=== PATIENT | female | born 1985 | race American Indian/Alaskan Native ===

== ENCOUNTER 2020-11-29 22:33 | Emergency (ER) | payer SELFPAY ==
[2020-11-29] MEDS ORDERED: Sodium Chloride 0.9% 10 ML Syringe FLUSH PRN (22:48)
--- NOTE | 2020-11-29 23:50 | EDM.PDOC ---
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 Patient has a history for seizures following an anoxic brain injury. She is currently followed by neurology at [facility] in [facility] and most recently saw Dr. Finn on 08/26/2020 for a follow-up. At t hat time she was on Dilantin 300 mg at bedtime, Keppra 2000 mg twice daily, lacosamide 200 mg twice daily, and clonazepam 0.5 mg 4 times daily for her seizure activity. Other medications included baclofen 40 mg 3 times daily for muscle spasm, Suboxone, Colace, and gabapentin. Her most recent documented seizure was on May 29, 2020 when she was seen at [facility]. At that time she had a seizure because she missed a dose of her medication and was subsequently given Keppra and discharged back to the nursing home. She was most recently seen on 11/19/2020 in [facility] where she was evaluated in the emergency room for alcohol intoxication and probable overdose. The patient reportedly eloped from her nursing home using her wheelchair and went on a binge drinking spree followed by ingestion of a full bottle of cold medicine. At that time she was medically cleared and sobered up at which time she denied any further suicide ideation and she was discharged back to the nursing home. 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 She does have a history of noncompliance with taking her medications. In reviewing the medication dispensing from the nursing home, it does appear that she has been dispensed the medications but what is unclear is whether she is actually taken them. In reviewing the patient medication list from the nursing home, it does not appear that she has taken her morning dose of Dilantin or the lacosamide but did take her Keppra. lower back and leg pain Pain Score (Numeric/FACES): 6 - Related Data Allergies Allergy/AdvReac Type Severity Reaction Status Date / Time bupropion HCl Allergy Intermediate Tachycardia Verified 11/29/20 22:45 [From Wellbutrin] ibuprofen Allergy Intermediate Swelling Verified 11/29/20 22:34 Home Meds: Home Meds Acetaminophen [Pain & Fever] 325 mg PO PRN 03/22/13 [History] Baclofen 10 mg PO TID 03/22/13 [History] Cholecalciferol (Vitamin D3) [Vitamin D] 1,000 unit PO 03/22/13 [History] Clobetasol [Clobetasol Propionate 0.05%] 15 gm TOP BEDTIME 03/22/13 [History] ClonazePAM [KlonoPIN] 0.5 mg PO TID 03/22/13 [History] Docusate Sodium [Dok] 100 mg PO PRN 03/22/13 [History] Gabapentin [Neurontin] 800 mg PO TID 03/22/13 [History] Hydrocodone/Acetaminophen [Hydrocodon-Acetaminophen 5-500] 1 tab PO Q8HR PRN 03/22/13 [History] LORazepam [Ativan] 1 mg PO QID PRN 03/22/13 [History] Lacosamide [Vimpat] 50 mg PO DAILY 03/22/13 [History] Multivitamin [Multivitamins] 1 each PO DAILY 03/22/13 [History] Omeprazole 20 mg PO DAILY 03/22/13 [History] Sennosides [Senna] 2 tab PO BID 03/22/13 [History] levETIRAcetam [Keppra] 2,000 mg PO BID 03/22/13 [History] Phenytoin Sodium Extended [Dilantin] 200 mg PO BID #120 capsule 11/30/20 [Rx] Past Medical History HEENT History: Reports: Hard of Hearing, Impaired Vision, Other (See Below) Other HEENT History: glasses. 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 anoxic encephalopathy. myoclonus. dysphasia Psychiatric History: Reports: ADHD, Bipolar, OCD, Other (See Below) Other Psychiatric History: Paranoia Hematologic History: Reports: Other (See Below) Other Hematologic History: hypokalemia Dermatologic History: Reports: Psoriasis, Other (See Below) Other Dermatologic History: dermatitis. sebaceous cysts in abd folds - Past Surgical History GI Surgical History: Reports: Cholecystectomy Social & Family History - Tobacco Use Tobacco Use Status *Q: Current Every Day Tobacco User Years of Tobacco use: 20 Packs/Tins Daily: 0.3 - Caffeine Use Caffeine Use: Reports: Soda - Recreational Drug Use Recreational Drug Use: No ED ROS GENERAL - Review of Systems Review Of Systems: See Below Constitutional: Reports: No Symptoms HEENT: Reports: No Symptoms Respiratory: Reports: No Symptoms Cardiovascular: Reports: No Symptoms Endocrine: Reports: No Symptoms GI/Abdominal: Reports: No Symptoms : Reports: No Symptoms Musculoskeletal: Reports: Muscle Stiffness (Chronic myoclonus) Skin: Reports: No Symptoms Neurological: Reports: Seizure (long term reports that she had a tonic-clonic seizure but does not report how long it lasted.), Tremors (Chronic myoclonus) Psychiatric: Reports: No Symptoms Hematologic/Lymphatic: Reports: No Symptoms Immunologic: Reports: No Symptoms - Physical Exam Exam: See Below Exam Limited By: Other (Patient has a history of anoxic brain injury causing some limitation to physical exam) General Appearance: Alert, No Apparent Distress Eye Exam: Bilateral Eye: EOMI, PERRL Throat/Mouth: Normal Inspection, Normal Oropharynx, Normal Voice, No Airway Compromise, Other (No evidence for cheek or tongue biting.) Head Exam: Atraumatic, Normocephalic Neck: Normal Inspection, Supple Respiratory/Chest: No Respiratory Distress, Lungs Clear, Normal Breath Sounds Cardiovascular: Normal Peripheral Pulses, Regular Rate, Rhythm, No Murmur GI/Abdominal: Normal Bowel Sounds, Soft, Non-Tender Neuro Exam (Abbreviated): Alert, Oriented, Normal Cognition (At her baseline), No Motor/Sensory Deficits (Patient is able to move upper and lower extremities. She cannot lift her midsection off the bed.) Back Exam: Normal Inspection, Other (Chronic low back pain) Extremities: Normal Inspection Psychiatric: Normal Affect, Normal Mood Skin Exam: Warm, Dry, Intact Course - Vital Signs Last Recorded V/S: Last Vital Signs Temp 36.4 C 11/29/20 22:37 Pulse 85 11/29/20 22:37 Resp 14 11/29/20 22:37 BP 106/67 11/29/20 22:37 Pulse Ox 94 L 11/29/20 22:37 - Orders/Labs/Meds Orders: Active Orders 24 hr Category Date Time Status DRUG SCREEN, URINE [URCHEM] Stat Lab 11/29/20 23:30 Ordered LEVETIRACETAM (KEPPRA), S Stat Lab 11/29/20 23:00 Received UA W/MICROSCOPIC [URIN] Stat Lab 11/29/20 23:30 Ordered Sodium Chloride 0.9% [Saline Flush] Med 11/29/20 22:48 Active 10 ml FLUSH ASDIRECTED PRN Saline Lock Insert [OM.PC] Routine Oth 11/29/20 22:48 Ordered Seizure Precautions [OM.PC] Routine Oth 11/29/20 22:48 Ordered Medication Orders Sodium Chloride (Sodium Chloride 0.9% 10 Ml Syringe) 10 ml FLUSH ASDIRECTED PRN PRN Reason: Keep Vein Open Labs: Laboratory Tests 11/29/20 11/29/20 11/29/20 Range/Units 23:00 23:00 23:00 WBC 11.0 (4.5-11.0) K/uL RBC 4.71 (3.30-5.50) M/uL Hgb 14.1 (12.0-15.0) g/dL Hct 42.7 (36.0-48.0) % MCV 91 (80-98) fL MCH 30 (27-31) pg MCHC 33 (32-36) % Plt Count 277 (150-400) K/uL Neut % (Auto) 68.7 H (36-66) % Lymph % (Auto) 22.7 L (24-44) % [place] % (Auto) 7.2 H (2-6) % Eos % (Auto) 1.1 L (2-4) % Baso % (Auto) 0.3 (0-1) % Sodium 142 (140-148) mmol/L Potassium 3.9 (3.6-5.2) mmol/L Chloride 107 (100-108) mmol/L Carbon Dioxide 26 (21-32) mmol/L Anion Gap 8.8 (5.0-14.0) mmol/L BUN 10 (7-18) mg/dL Creatinine 0.7 (0.6-1.0) mg/dL Est Cr Clr Drug Dosing 108.04 mL/min Estimated GFR (MDRD) > 60 (>60) Glucose 96 (74-106) mg/dL Lactic Acid 1.0 (0.4-2.0) mmol/L Calcium 8.4 L (8.5-10.1) mg/dL Total Bilirubin 0.4 (0.2-1.0) mg/dL AST 25 (15-37) U/L ALT 47 (12-78) U/L Alkaline Phosphatase 159 H (46-116) U/L C-Reactive Protein 1.57 H (0.0-0.3) mg/dL Total Protein 7.3 (6.4-8.2) g/dL Albumin 3.1 L (3.4-5.0) g/dL Globulin 4.2 H (2.3-3.5) g/dL Albumin/Globulin Ratio 0.7 L (1.2-2.2) Phenytoin (10.0-20.0) ug/mL Ethyl Alcohol mg/dL SARS CoV-2 RNA Rapid ALYSSA 11/29/20 11/29/20 11/30/20 Range/Units 23:00 23:00 00:38 WBC (4.5-11.0) K/uL RBC (3.30-5.50) M/uL Hgb (12.0-15.0) g/dL Hct (36.0-48.0) % MCV (80-98) fL MCH (27-31) pg MCHC (32-36) % Plt Count (150-400) K/uL Neut % (Auto) (36-66) % Lymph % (Auto) (24-44) % [place]ac[place] % (Auto) (2-6) % Eos % (Auto) (2-4) % Baso % (Auto) (0-1) % Sodium (140-148) mmol/L Potassium (3.6-5.2) mmol/L Chloride (100-108) mmol/L Carbon Dioxide (21-32) mmol/L Anion Gap (5.0-14.0) mmol/L BUN (7-18) mg/dL Creatinine (0.6-1.0) mg/dL Est Cr Clr Drug Dosing mL/min Estimated GFR (MDRD) (>60) Glucose (74-106) mg/dL Lactic Acid (0.4-2.0) mmol/L Calcium (8.5-10.1) mg/dL Total Bilirubin (0.2-1.0) mg/dL AST (15-37) U/L ALT (12-78) U/L Alkaline Phosphatase (46-116) U/L C-Reactive Protein (0.0-0.3) mg/dL Total Protein (6.4-8.2) g/dL Albumin (3.4-5.0) g/dL Globulin (2.3-3.5) g/dL Albumin/Globulin Ratio (1.2-2.2) Phenytoin 2.8 L (10.0-20.0) ug/mL Ethyl Alcohol < 3 mg/dL SARS CoV-2 RNA Rapid ALYSSA Negative Meds: Medications Generic Name Dose Route Start Last Admin Trade Name Freq PRN Reason Stop Dose Admin Sodium Chloride 10 ml 11/29/20 22:48 Sodium Chloride 0.9% 10 Ml Syringe FLUSH ASDIRECTED PRN Keep Vein Open - Re-Assessments/Exams Free Text/Narrative Re-Assessment/Exam: 11/30/20 00:12 I reviewed the patient's labs showing a leukocyte count of 11.0 with a normal differential, hemoglobin of 14.1, hematocrit of 42.7 and a platelet count of 277,000. Patient's comprehensive metabolic panel is normal. Lactic acid is 1.0 and C-reactive protein is mildly elevated at 1.57. Verifying medications given by the nursing home but it does sound like she has been getting her regular doses of her seizure medicines. The patient was visited by her mother yesterday and it appears that there is a pattern that once the mother visits that the patient has these type of episodes raising concerns it may be mom is bringing something into the facility that the patient is taking. We are trying to get a urinalysis and urine tox screen to evaluate for this. The patient's ethanol level is less than 3. 11/30/20 00:18 Dilantin level is low at 2.8. Unfortunately, the Keppra is a 3- day send out and I cannot even get a lacosamide level. She is likely subtherapeutic on all of the seizure medications. I will likely have to arrange for transfer of the patient to another facility as we are unable to accommodate her here, nor do we have neurology available. We will start by reaching out to [facility] where she normally sees her neurologist. I discussed the case with Adam, triage coordinator for [facility]. They currently do not have bed availability and are on diversion. I will call [facility] as she normally goes there for her care. I discussed the case with Sarah who will talk with the hospitalist to see if this is something that they would be able to accommodate. [facility] was unable to take her due to bed status and the lack of a neurologist. 11/30/20 00:58 I discussed the case with Dr. Espinal, neurologist from [facility] and reviewed the patient's presenting complaint and medications. He recommended increasing the Dilantin to 200 mg twice daily and feels that the patient could likely go back to the nursing home with instructions to follow-up with the neurologist at [facility] at least by phone tomorrow. He does not feel that this requires hospitalization. Therefore, we will give the patient extra dose of Dilantin 200 mg tonight and notify the nursing home of the change to medication. I will provide a prescription for the Dilantin 200 mg twice daily to go with the patient back to the nursing home. She will likely need to go back via EMS as she is not ambulatory. Departure - Departure Time of Disposition: 01:04 Disposition: DC/Tfer to [facility] Clinical Impression: Breakthrough seizure - Discharge Information Referrals: PCP,None [Primary Care Provider] - Forms: ED Department Discharge Care Plan Goals: We are changing the dosing of Dilantin to 200 mg twice daily as Judit is subtherapeutic. This was on the recommendations of the neurologist at [facility], Dr. Espinal. He would like the patient to follow-up with her neurologist at [facility] as soon as possible. He felt that the patient could go back to the nursing home tonight. Sepsis Event Note (ED) - Evaluation Sepsis Screening Result: No Definite Risk - Focused Exam Vital Signs: Vital Signs Temp Pulse Resp BP Pulse Ox 11/29/20 22:37 36.4 C 85 14 106/67 94 L 11/29/20 22:36 36.4 C 85 14 106/67 94 L - Problem List & Annotations (1) Breakthrough seizure SNOMED Code(s): 047075627 Code(s): G40.919 - EPILEPSY, UNSP, INTRACTABLE, WITHOUT STATUS EPILEPTICUS Status: Acute Priority: High Current Visit: Yes - Problem List Review Problem List Initiated/Reviewed/Updated: Yes - My Orders Last 24 Hours: My Active Orders 11/29/20 22:48 Sodium Chloride 0.9% [Saline Flush] 10 ml FLUSH ASDIRECTED PRN Saline Lock Insert [OM.PC] Routine Seizure Precautions [OM.PC] Routine 11/29/20 23:00 LEVETIRACETAM (KEPPRA), S Stat 11/29/20 23:30 DRUG SCREEN, URINE [URCHEM] Stat UA W/MICROSCOPIC [URIN] Stat - Assessment/Plan Last 24 Hours: My Active Orders 11/29/20 22:48 Sodium Chloride 0.9% [Saline Flush] 10 ml FLUSH ASDIRECTED PRN Saline Lock Insert [OM.PC] Routine Seizure Precautions [OM.PC] Routine 11/29/20 23:00 LEVETIRACETAM (KEPPRA), S Stat 11/29/20 23:30 DRUG SCREEN, URINE [URCHEM] Stat UA W/MICROSCOPIC [URIN] Stat
[2020-11-30] MEDS ORDERED: Phenytoin 100 MG Cap.ER PO STA (01:05)
== END 2020-11-30 01:53 ==
LOC: JP.ED 22:33
DX: R56.9 Unspecified convulsions (principal); I25.2 Old myocardial infarction; J45.909 Unspecified asthma, uncomplicated; Z88.8 Allergy status to other drugs, medicaments and biological substances; Z79.899 Other long term (current) drug therapy; Z72.0 Tobacco use
CPT/HCPCS: 36415; 80053; 80177; 80185; 80305; 80307; 81001; 83605; 85025; 86140; 87635; 99284; A9270; U0002

== ENCOUNTER 2020-12-06 05:58 | Emergency (ER) | payer MEDICAID ==
--- NOTE | 2020-12-06 06:45 | EDM.PDOC ---
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 She was evaluated in [place] last night, sent back to her detention and apparently had another generalized seizure this morning followed by clonic rhythmic jerking of all of her extremities which she is completely awake for so they wanted her evaluated again and sent her here. The patient's only complaint is "my back hurts and I want some socks". Apparently they are holding her Keppra dose until the level can be obtained, when she was seen here 1 week ago her Dilantin level was low and there was some questions of noncompliance with medications. She has no oral injury. It was my impression that she tended to have the clonic spasms when I walked into the room. Onset: Unknown/Unsure Duration: Chronic (This is a chronic recurring problem) Location: Reports: Generalized Associated Symptoms: Denies: Chest Pain, Malaise, Shortness of Breath Treatments PUFF IRONER: Reports: See EMS Report Lower Back Pain Score (Numeric/FACES): 5 - Related Data Allergies Allergy/AdvReac Type Severity Reaction Status Date / Time bupropion HCl Allergy Intermediate Tachycardia Verified 12/06/20 06:07 [From Wellbutrin] ibuprofen Allergy Intermediate Swelling Verified 12/06/20 06:07 Home Meds: Home Meds Acetaminophen [Pain & Fever] 325 mg PO ASDIRECTED PRN 03/22/13 [History] Baclofen 10 mg PO TID 03/22/13 [History] Cholecalciferol (Vitamin D3) [Vitamin D] 1,000 unit PO DAILY 03/22/13 [History] Clobetasol [Clobetasol Propionate 0.05%] 15 gm TOP BEDTIME 03/22/13 [History] ClonazePAM [KlonoPIN] 0.5 mg PO TID 03/22/13 [History] Docusate Sodium [Dok] 100 mg PO ASDIRECTED PRN 03/22/13 [History] Gabapentin [Neurontin] 800 mg PO TID 03/22/13 [History] LORazepam [Ativan] 1 mg PO QID PRN 03/22/13 [History] Lacosamide [Vimpat] 50 mg PO DAILY 03/22/13 [History] Multivitamin [Multivitamins] 1 each PO DAILY 03/22/13 [History] Omeprazole 20 mg PO DAILY 03/22/13 [History] Sennosides [Senna] 2 tab PO BID 03/22/13 [History] levETIRAcetam [Keppra] 2,000 mg PO BID 03/22/13 [History] Phenytoin Sodium Extended [Dilantin] 200 mg PO BID #120 capsule 11/30/20 [Rx] Past Medical History HEENT History: Reports: Hard of Hearing, Impaired Vision, Other (See Below) Other HEENT History: glasses. 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 anoxic encephalopathy. myoclonus. dysphasia Psychiatric History: Reports: ADHD, Anxiety, Bipolar, Depression, OCD, Other (See Below) Other Psychiatric History: Paranoia Hematologic History: Reports: Other (See Below) Other Hematologic History: hypokalemia Dermatologic History: Reports: Psoriasis, Other (See Below) Other Dermatologic History: dermatitis. sebaceous cysts in abd folds - Past Surgical History GI Surgical History: Reports: Cholecystectomy Social & Family History - Tobacco Use Tobacco Use Status *Q: Current Every Day Tobacco User Years of Tobacco use: 21 Packs/Tins Daily: 0.1 - Caffeine Use Caffeine Use: Reports: None - Recreational Drug Use Recreational Drug Use: No ED ROS GENERAL - Review of Systems Review Of Systems: See Below Constitutional: Denies: Fever, Chills HEENT: Denies: Vision Change Respiratory: Denies: Shortness of Breath Cardiovascular: Denies: Chest Pain GI/Abdominal: Denies: Nausea, Vomiting Musculoskeletal: Reports: Back Pain Neurological: Reports: Confusion, Weakness (Patient is chronically wheelchair- bound). Denies: Headache ED EXAM, GENERAL - Physical Exam Exam: See Below Exam Limited By: No Limitations General Appearance: Alert, No Apparent Distress, Other (Some rhythmic full body spasms of the extremities and upper trunk but they seem random, and despite being all 4 extremities she remains conscious without any postictal phase) Eye Exam: Bilateral Eye: EOMI, PERRL Head: Atraumatic Neck: Non-Tender Respiratory/Chest: Lungs Clear Cardiovascular: Regular Rate, Rhythm GI/Abdominal: Soft, Non-Tender Extremities: Other (There is a small what appears to be a blood blister on the tip of her right great toe, otherwise no evidence of trauma) Psychiatric: Flat Affect Skin Exam: Warm, Dry Course - Re-Assessments/Exams Free Text/Narrative Re-Assessment/Exam: 12/06/20 06:51 Reviewed her last ER visit here in its entirety, asked for records from [place] from last night which are pending. Her Dilantin level was significantly subtherapeutic on her last visit, this was repeated but no further labs were ordered at this time pending [place]'s records. Dr. Alan accepted care at 7 AM. Departure - Departure Disposition: Home, Self-Care 01 Clinical Impression: Seizures - Discharge Information Instructions: Seizure, Adult, [id number] Referrals: PCP,None [Primary Care Provider] - Forms: ED Department Discharge Additional Instructions: Resume your usual medications. You still need to take your Vimpat today as we didn't have this medication at the hospital. You were given Keppra 1000 mg IV and Dilantin 1000 mg IV today and oral gabapentin 800 mg. You Dilantin level was still low today at 4.2 Stay in close communication with your neurologist regarding your seizures. Sepsis Event Note (ED) - Evaluation Sepsis Screening Result: No Definite Risk <Rafa Alan - Last Filed: 12/06/20 10:01> Course - Vital Signs Last Recorded V/S: Last Vital Signs Temp 36.5 C 12/06/20 06:00 Pulse 117 H 12/06/20 08:10 Resp 16 12/06/20 08:10 BP 114/66 12/06/20 08:10 Pulse Ox 91 L 12/06/20 08:10 - Orders/Labs/Meds Orders: Active Orders 24 hr Category Date Time Status Sodium Chloride 0.9% [Saline Flush] Med 12/06/20 07:48 Active 10 ml FLUSH ASDIRECTED PRN Saline Lock Insert [OM.PC] Routine Oth 12/06/20 07:48 Ordered Medication Orders Sodium Chloride (Sodium Chloride 0.9% 10 Ml Syringe) 10 ml FLUSH ASDIRECTED PRN PRN Reason: Keep Vein Open Labs: Laboratory Tests 12/06/20 Range/Units 06:37 Phenytoin 4.2 L (10.0-20.0) ug/mL Meds: Medications Generic Name Dose Route Start Last Admin Trade Name Freq PRN Reason Stop Dose Admin Sodium Chloride 10 ml 12/06/20 07:48 Sodium Chloride 0.9% 10 Ml Syringe FLUSH ASDIRECTED PRN Keep Vein Open Discontinued Medications Generic Name Dose Route Start Last Admin Trade Name Freq PRN Reason Stop Dose Admin Gabapentin 80 mg 12/06/20 09:23 Gabapentin 400 Mg Cap PO 12/06/20 09:24 NOW STA Gabapentin 800 mg 12/06/20 09:32 12/06/20 09:58 Gabapentin 400 Mg Cap PO 12/06/20 09:33 800 mg NOW STA Administration Fosphenytoin Sodium 1,000 mg. 70 mls @ 150 mls/hr 12/06/20 07:45 12/06/20 08:06 pe/ Sodium Chloride IV 12/06/20 08:12 150 mls/hr NOW ONE Administration Sodium Chloride Confirm 12/06/20 07:38 12/06/20 07:56 Normal Saline Administered 12/06/20 07:39 Not Given Dose 50 mls @ as directed .ROUTE .STK-MED ONE Levetiracetam 1,000 mg/ Premix 100 mls @ 400 mls/hr 12/06/20 08:00 12/06/20 08:24 IV 12/06/20 08:14 400 mls/hr ONETIME ONE Administration - Re-Assessments/Exams Free Text/Narrative Re-Assessment/Exam: 12/06/20 07:56 Had a self-limiting approx 4 min seizure mainly characterized by unresponsiveness and a heavy breathing pattern with drooling. No flailing of arms/legs. Just initiating IV fosphenytoin due to continued low Dilantin level. Will also give a loading dose of Keppra 1000 mg IV. Free Text/Narrative Re-Assessment/Exam: 12/06/20 09:27 Says she feels better after loading with Keppra and Fosphenytoin. Is alert. Reports not getting any of her meds yesterday due to not feeling well. Has appt with her neurologist on 12/13 in [place]. Departure - Departure Time of Disposition: 10:30 Condition: Fair - Discharge Information *PRESCRIPTION DRUG MONITORING PROGRAM REVIEWED*: Not Applicable *COPY OF PRESCRIPTION DRUG MONITORING REPORT IN PATIENT FLORA: Not Applicable Sepsis Event Note (ED) - Focused Exam Vital Signs: Vital Signs Temp Pulse Resp BP Pulse Ox 12/06/20 08:10 117 H 16 114/66 91 L 12/06/20 06:00 36.5 C 98 18 142/55 H 100 - My Orders Last 24 Hours: My Active Orders 12/06/20 07:48 Sodium Chloride 0.9% [Saline Flush] 10 ml FLUSH ASDIRECTED PRN Saline Lock Insert [OM.PC] Routine - Assessment/Plan Last 24 Hours: My Active Orders 12/06/20 07:48 Sodium Chloride 0.9% [Saline Flush] 10 ml FLUSH ASDIRECTED PRN Saline Lock Insert [OM.PC] Routine
[2020-12-06] MEDS ORDERED: Fosphenytoin 1,000 MG.PE in Sodium Chloride 0.9% 50 ML IV ONE ×2 (07:32→07:45)
[2020-12-06] MEDS ORDERED: Sodium Chloride 0.9% 50 ML ONE (07:38)
[2020-12-06] MEDS ORDERED: Sodium Chloride 0.9% 10 ML Syringe FLUSH PRN (07:48)
[2020-12-06] MEDS ORDERED: levETIRAcetam 1,000 MG in Sodium Chloride 0.9% 100 ML IV ONE (07:49)
[2020-12-06] MEDS ORDERED: levETIRAcetam in NaCl (iso-os) 1,000 MG in Premix Bag 1 BAG IV ONE ×2 (08:00)
[2020-12-06] MEDS ORDERED: Gabapentin 400 MG Cap PO STA ×2 (09:23→09:32)
== END 2020-12-06 10:40 | disposition home or self-care (01) ==
LOC: JP.ED 05:58
DX: R56.9 Unspecified convulsions (principal); I25.2 Old myocardial infarction; Z79.899 Other long term (current) drug therapy; Z88.8 Allergy status to other drugs, medicaments and biological substances; Z72.0 Tobacco use
CPT/HCPCS: 36415; 80185; 96365; 96367; 99284; A9270; J1953; Q2009

== ENCOUNTER 2023-04-07 09:26 | Emergency (ER) | payer MEDICAID ==
[2023-04-07 10:13] LABS: CORONAVIRUS COVID-19 NAA POSITIVE (NEGATIVE); INFLUENZA A NAA NEGATIVE (NEGATIVE); INFLUENZA B NAA NEGATIVE (NEGATIVE); RESPIRATORY SYNCYTIAL VIR NAA NEGATIVE (NEGATIVE)
== END 2023-04-07 13:48 | disposition home or self-care (01) ==
LOC: JP.ED 09:26
DX: U07.1 COVID-19 (principal); F17.210 Nicotine dependence, cigarettes, uncomplicated; Z88.6 Allergy status to analgesic agent; Z79.899 Other long term (current) drug therapy; Z90.49 Acquired absence of other specified parts of digestive tract
CPT/HCPCS: 0241U; 99285

== ENCOUNTER 2024-05-06 18:36 | Emergency (ER) | payer MEDICAID ==
[2024-05-06] MEDS: fentaNYL 100 MCG/2 ML SDV IM ONE (20:51)
[2024-05-06] MEDS: guaiFENesin 600 MG Tab.ER PO ONE (20:51)
[2024-05-06] MEDS: Albuterol/Ipratropium 3.0-0.5 MG/3 ML Neb Soln NEB ONE (20:51)
[2024-05-06] MEDS: Acetaminophen 500 MG Tab PO ONE (20:51)
[2024-05-06 21:24] LABS: BASOPHILS ABSOLUTE AUTO 0.02 K/uL (0.00-0.10); BASOPHILS PERCENT AUTO 0.2 % (0.1-1.3); EOSINOPHILS ABSOLUTE AUTO 0.03 K/uL (0.00-0.40); EOSINOPHILS PERCENT AUTO 0.3 % (0.0-5.4); HEMATOCRIT 44.8 % (34.3-46.0); HEMOGLOBIN 15.1 g/dL (11.2-15.5); IMMATURE GRAN ABSOLUTE AUTO 0.07 K/uL (0.00-0.23); IMMATURE GRAN PERCENT AUTO 0.7 % (0.0-0.7); LYMPHOCYTES ABSOLUTE AUTO 1.29 K/uL (0.8-3.3); LYMPHOCYTES PERCENT AUTO 12.3 % (11.4-47.7); MEAN CORPUSCULAR HEMOGLOBIN 29.8 pg (31.6-35.5); MEAN CORPUSCULAR HGB CONC 33.7 g/dL (31.6-35.5); MEAN CORPUSCULAR VOLUME 88.5 fL (81.4-99.0); MONOCYTES ABSOLUTE AUTO 0.62 K/uL (0.20-0.90); MONOCYTES PERCENT AUTO 5.9 % (3.3-12.6); NEUTROPHILS ABSOLUTE AUTO 8.49 K/uL (1.0-7.6); NEUTROPHILS PERCENT AUTO 80.6 % (40.0-78.1); PLATELET COUNT,PLT 244 K/uL (130-375); RED BLOOD CELL COUNT 5.06 M/uL (3.77-5.24); WHITE BLOOD CELL COUNT,WBC 10.5 K/uL (3.2-11.0)
[2024-05-06 21:44] LABS: A/G RATIO 0.8 (1.2-2.2); ALANINE AMINOTRANSFERASE,ALT 30 U/L (12-78); ALBUMIN 3.7 g/dL (3.4-5.0); ALKALINE PHOSPHATASE 216 U/L (46-116); ANION GAP 15.1 mmol/L (5.0-14.0); ASPARTATE AMNIOTRANSFERASE,AST 31 U/L (15-37); BILIRUBIN TOTAL 0.4 mg/dL (0.2-1.0); BLOOD UREA NITROGEN,BUN 7 mg/dL (7-18); CALCIUM 8.6 mg/dL (8.5-10.1); CARBON DIOXIDE,CO2 26 mmol/L (21-32); CHLORIDE,CL 103 mmol/L (100-108); CREATININE 0.8 mg/dL (0.6-1.0); ESTIMATED GFR 95 mL/min (>60); GLUCOSE RANDOM 142 mg/dL (74-106); POTASSIUM,K 3.1 mmol/L (3.6-5.2); PROTEIN TOTAL,TP 8.4 g/dL (6.4-8.2); SODIUM,NA 141 mmol/L (140-148)
== END 2024-05-06 22:05 ==
LOC: JP.ED 18:36
DX: J40 Bronchitis, not specified as acute or chronic (principal); I25.10 Atherosclerotic heart disease of native coronary artery without angina pectoris; I25.2 Old myocardial infarction; Z90.49 Acquired absence of other specified parts of digestive tract; Z88.5 Allergy status to narcotic agent; Z88.8 Allergy status to other drugs, medicaments and biological substances; Z79.51 Long term (current) use of inhaled steroids; Z79.899 Other long term (current) drug therapy
CPT/HCPCS: 36415; 80053; 83605; 84484; 85025; 94640; 96372; 99285; A9270-GY; J3010; J7620

== ENCOUNTER 2024-05-09 05:00 | Emergency (ER) | payer MEDICAID ==
[2024-05-09 05:54] LABS: BASOPHILS ABSOLUTE AUTO 0.03 K/uL (0.00-0.10); BASOPHILS PERCENT AUTO 0.6 % (0.1-1.3); EOSINOPHILS ABSOLUTE AUTO 0.11 K/uL (0.00-0.40); EOSINOPHILS PERCENT AUTO 2.1 % (0.0-5.4); HEMATOCRIT 42.5 % (34.3-46.0); HEMOGLOBIN 14.5 g/dL (11.2-15.5); IMMATURE GRAN PERCENT AUTO 0.2 % (0.0-0.7); LYMPHOCYTES ABSOLUTE AUTO 1.22 K/uL (0.8-3.3); LYMPHOCYTES PERCENT AUTO 22.8 % (11.4-47.7); MEAN CORPUSCULAR HGB CONC 34.1 g/dL (31.6-35.5); MEAN CORPUSCULAR VOLUME 87.8 fL (81.4-99.0); MONOCYTES ABSOLUTE AUTO 0.91 K/uL (0.20-0.90); NEUTROPHILS ABSOLUTE AUTO 3.08 K/uL (1.0-7.6); NEUTROPHILS PERCENT AUTO 57.3 % (40.0-78.1); PLATELET COUNT,PLT 208 K/uL (130-375); RED BLOOD CELL COUNT 4.84 M/uL (3.77-5.24); WHITE BLOOD CELL COUNT,WBC 5.4 K/uL (3.2-11.0)
[2024-05-09 05:57] LABS: IMMATURE GRAN ABSOLUTE AUTO 0.01 K/uL (0.00-0.23)
[2024-05-09] MEDS: Sodium Chloride 0.9% 10 ML Syringe FLUSH PRN (05:57)
[2024-05-09] MEDS: LORazepam 2 MG/ML SDV IVPUSH ONE (05:58)
[2024-05-09] MEDS: Lactated Ringers 1,000 ML IV SCH (05:59)
[2024-05-09] MEDS: cefTRIAXone 1 GM in Sodium Chloride 0.9% 50 ML IV SCH (06:02)
[2024-05-09] MEDS: Doxycycline 100 MG in Sodium Chloride 0.9% 100 ML IV ONE (06:06)
[2024-05-09 06:21] LABS: A/G RATIO 0.7 (1.2-2.2); ALANINE AMINOTRANSFERASE,ALT 30 U/L (12-78); ALBUMIN 3.4 g/dL (3.4-5.0); ALKALINE PHOSPHATASE 170 U/L (46-116); ASPARTATE AMNIOTRANSFERASE,AST 35 U/L (15-37); BILIRUBIN TOTAL 0.3 mg/dL (0.2-1.0); BLOOD UREA NITROGEN,BUN 6 mg/dL (7-18); C-REACTIVE PROTEIN 4.34 mg/dL (<0.50); CARBON DIOXIDE,CO2 24 mmol/L (21-32); CHLORIDE,CL 104 mmol/L (100-108); CREATININE 0.8 mg/dL (0.6-1.0); ESTIMATED GFR 95 mL/min (>60); GLUCOSE RANDOM 122 mg/dL (74-106); LACTIC ACID 1.8 mmol/L (0.4-2.0); POTASSIUM,K 3.1 mmol/L (3.6-5.2); SODIUM,NA 142 mmol/L (140-148)
[2024-05-09 06:23] LABS: ANION GAP 17.1 mmol/L (5.0-14.0)
[2024-05-09] MEDS: Albuterol/Ipratropium 3.0-0.5 MG/3 ML Neb Soln NEB ONE (07:17)
[2024-05-09] MEDS: Ondansetron 4 MG/2 ML SDV IVPUSH ONE (07:43)
[2024-05-09 07:48] LABS: CORONAVIRUS COVID-19 NAA NEGATIVE (NEGATIVE); INFLUENZA A NAA NEGATIVE (NEGATIVE); INFLUENZA B NAA NEGATIVE (NEGATIVE); RESPIRATORY SYNCYTIAL VIR NAA POSITIVE (NEGATIVE)
[2024-05-09] MEDS: Codeine/guaiFENesin 10-100 MG/5 ML Syrup 5 ML Cup PO ONE (08:30)
[2024-05-09] MEDS: Benzonatate 100 MG Cap PO ONE (08:31)
[2024-05-09] MEDS: Iopamidol 755 Mg/ML 100 ML Bottle IV ONE (08:48)
[2024-05-09] MEDS: Sodium Chloride 0.9% 100 ML IV SCH (08:48)
[2024-05-09] MEDS: methylPREDNISolone Sodium Succinate 125 MG/2 ML SDV IVPUSH ONE (09:58)
[2024-05-09] MEDS: levETIRAcetam 250 MG Tab PO SCH (10:38)
[2024-05-09] MEDS: Escitalopram 10 MG Tab PO SCH (10:38)
[2024-05-09] MEDS: Furosemide 20 MG Tab PO SCH (10:39)
[2024-05-09] MEDS: Phenytoin 100 MG Cap.ER PO SCH (10:39)
[2024-05-09] MEDS: Gabapentin 400 MG Cap PO SCH (10:39)
[2024-05-09] MEDS: LACOSAMIDE 100 MG PO SCH (10:46)
[2024-05-09] MEDS: ClonazePAM 0.5 MG Tab PO SCH (13:29)
[2024-05-09] MEDS: Baclofen 10 MG Tab PO SCH (13:29)
[2024-05-09] MEDS: ClonazePAM 0.5 MG Tab ONE (13:37)
== END 2024-05-09 13:36 ==
LOC: EEVIPCON 05:00 → JP.ED 05:00
DX: J21.0 Acute bronchiolitis due to respiratory syncytial virus (principal); I25.10 Atherosclerotic heart disease of native coronary artery without angina pectoris; I25.2 Old myocardial infarction; J45.909 Unspecified asthma, uncomplicated; F17.210 Nicotine dependence, cigarettes, uncomplicated; Z86.16 Personal history of COVID-19; Z90.49 Acquired absence of other specified parts of digestive tract; Z88.5 Allergy status to narcotic agent; Z88.8 Allergy status to other drugs, medicaments and biological substances; Z79.51 Long term (current) use of inhaled steroids; Z79.899 Other long term (current) drug therapy
CPT/HCPCS: 0241U; 36415; 71250; 71275; 80053; 83605; 84145; 84484; 85025; 85379; 86140; 87040; 94640; 96365; 96367; 96375; 99285; A9270; J0696; J2060; J2405; J2919; J3490; J7120; Q9967; J7620

== ENCOUNTER 2025-04-04 10:52 | Emergency (ER) | payer MEDICAID | END 2025-04-04 12:15 | disposition home or self-care (01) | LOC: JP.ED 10:52 | DX: L89.159 Pressure ulcer of sacral region, unspecified stage (principal); I25.10 Atherosclerotic heart disease of native coronary artery without angina pectoris; I25.2 Old myocardial infarction; Z88.5 Allergy status to narcotic agent; Z88.6 Allergy status to analgesic agent; Z88.8 Allergy status to other drugs, medicaments and biological substances; Z79.899 Other long term (current) drug therapy; Z86.16 Personal history of COVID-19 | CPT/HCPCS: 99283 ==